=== PATIENT | female | born 1975 ===

== ENCOUNTER 2019-07-27 12:57 | Outpatient (CLI) | payer OTHER ==
--- NOTE | 2019-07-27 14:32 | ULT ---
BILATERAL RENAL ULTRASOUND COMPLETE: 07/27/19 HISTORY: Hypertension, diabetes mellitus. FINDINGS: Right kidney measures 11.1 x 4.2 x 5.4 cm. Left kidney measures 11.7 x 5.3 x 7 cm. 1.6 x 2 cm diameter hypoechoic focus involving the superior right kidney probably a cyst although melendrez s not meet strict ultrasound criteria for a definite benign cyst. In addition, there is some nodulari ty and lobulation of both kidneys, more prominent on the right side with a focal area approximating 2 cm in size involving the mid portion of the right kidney possibly just somewhat more prominent lobul ation versus somewhat hypertrophic column of Isai. On the left side, there is a very prominent hyp ertrophic column of Isai. No hydronephrosis. The bladder is empty. IMPRESSION: Lobulated appearing right kidney with one probable cyst and one potential solid focus of the mid kidn ey with the possibility of a solid mass versus lobulation being considerations. Follow-up abdomen and pelvic CT scan with and without IV contrast with renal mass protocol should be considered for further assessment. No renal hydronephrosis. Empty bladder. Prominent hypertrophic col umn of Isai involving the left kidney. POS: [facility]
== END 2019-07-27 12:58 | disposition home or self-care (01) ==
LOC: BICULT 12:57
PROVIDERS: ATTEND Family Medicine
DX: E11.9 Type 2 diabetes mellitus without complications (principal); I10 Essential (primary) hypertension; I25.10 Atherosclerotic heart disease of native coronary artery without angina pectoris
CPT/HCPCS: 76770

== ENCOUNTER 2019-08-18 13:46 | Outpatient (CLI) | payer OTHER ==
--- NOTE | 2019-08-18 16:16 | CT ---
CT ABDOMEN AND PELVIS WITHOUT AND WITH IV CONTRAST: 08/18/19 HISTORY: Renal mass. Abnormal sonogram. COMPARISON: Renal sonogram 07/27/19. FINDINGS: Each renal collecting system, ureter and urinary bladder are decompressed without stone apparent. 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 This results in renal parenchymal prominence protruding into the m id portion of each renal pelvis. Significant thinning at the superior lateral pole of the right kidn ey. This results in the mass-like appearance on recent sonogram. No solid or cystic masses are appare nt on today's exam. Gallbladder is surgically absent. No evidence of bowel obstruction or inflammation. 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 IMPRESSION: Mild congenital anomalies of the kidneys. No evidence of mass or other acute process. Status post cholecystectomy. POS: [facility]
== END 2019-08-18 13:47 | disposition home or self-care (01) ==
LOC: BICCT 13:46
PROVIDERS: ATTEND Family Medicine
DX: N28.89 Other specified disorders of kidney and ureter (principal); Q63.9 Congenital malformation of kidney, unspecified; Z90.49 Acquired absence of other specified parts of digestive tract
CPT/HCPCS: 74178